=== PATIENT | male | born 1960 | race Caucasian/White ===

== ENCOUNTER 2016-10-13 12:35 | Emergency (ER) | payer SELFPAY ==
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
== END 2016-10-13 14:06 | disposition home or self-care (01) ==
LOC: ER 12:35
DX: S43.52XA Sprain of left acromioclavicular joint, initial encounter (principal); S40.012A Contusion of left shoulder, initial encounter; V18.0XXA Pedal cycle driver injured in noncollision transport accident in nontraffic accident, initial encounter
CPT/HCPCS: 73050; 99283